=== PATIENT | male | born 1960 | race Caucasian/White ===

== ENCOUNTER 2022-10-07 20:55 | Observation (INO) | payer MEDICARE, MEDICAID, SELFPAY ==
[2022-10-07] VITALS (15 sets, daily range): BP systolic 125–171; BP diastolic 67–116; PULSE 74–103; RESP 14–31; TEMP 36.9; O2SAT 93–98; BMI 27.3
[2022-10-07 21:25] LABS: Glucometer 141 mg/dL (74-106)
--- NOTE | 2022-10-07 21:27 | ED_ITS ---
HPI - Chest Pain General Chief Complaint: Chest Pain Stated Complaint: CHEST PAIN Time Seen by Provider: 10/07/22 21:23 Mode of arrival: Wheelchair History of Present Illness HPI narrative: presents complaining of chest pain on and off for the past 3 days. Daily c igarette smoker. Right sided chest pain. Pain increases with deep breath. No associated abdominal pain MD complaint: Reports chest pain Risk Factors Coronary artery disease risk factors: smoking history and hypertension Related Data Home Medications Medication Instructions Recorded Confirmed amlodipine 10 mg tablet 10 mg PO DAILY 10/07/22 10/07/22 cariprazine 6 mg capsule (Vraylar) 6 mg PO DAILY 10/07/22 10/07/22 divalproex 500 mg tablet,delayed 500 mg PO DAILY 10/07/22 10/07/22 release olanzapine 20 mg tablet 20 mg PO DAILY 10/07/22 10/07/22 trazodone 100 mg tablet 100 mg PO PRN sleep 10/07/22 Allergies Allergy/AdvReac Type Severity Reaction Status Date / Time No Known Drug Allergies Allergy Verified 10/07/22 21:17 Review of Systems ROS Status of ROS 10 or more systems reviewed and unremarkable except as noted in history and below Cardiovascular Reports: chest pain PFSH PFSH Social History Smoking status: Current every day smoker Exam Constitutional Vital Signs - 24 hr 10/07/22 21:13 10/07/22 21:13 10/07/22 21:18 Temperature 98.4 F Pulse Rate 86 88 Pulse Rate [Monitor] 84 Respiratory Rate 14 18 23 Blood Pressure 171/116 H 163/102 H Blood Pressure [Right Arm] 171/116 H Pulse Oximetry 95 93 L 97 Oxygen Delivery Method Room Air 10/07/22 21:32 10/07/22 21:40 10/07/22 21:50 Temperature Pulse Rate 80 84 86 Pulse Rate [Monitor] Respiratory Rate 16 20 18 Blood Pressure Blood Pressure [Right Arm] Pulse Oximetry 97 97 95 Oxygen Delivery Method 10/07/22 22:00 10/07/22 22:10 10/07/22 22:20 Temperature Pulse Rate 86 81 80 Pulse Rate [Monitor] Respiratory Rate 31 H 19 16 Blood Pressure Blood Pressure [Right Arm] Pulse Oximetry 98 94 L 97 Oxygen Delivery Method 10/07/22 22:30 10/07/22 22:40 10/07/22 22:50 Temperature Pulse Rate 80 83 84 Pulse Rate [Monitor] Respiratory Rate 16 17 16 Blood Pressure Blood Pressure [Right Arm] Pulse Oximetry 97 96 94 L Oxygen Delivery Method 10/07/22 22:57 10/07/22 22:58 10/07/22 23:00 Temperature Pulse Rate 93 H 90 78 Pulse Rate [Monitor] Respiratory Rate 18 19 16 Blood Pressure 168/95 H 150/86 H Blood Pressure [Right Arm] Pulse Oximetry 95 95 94 L Oxygen Delivery Method 10/07/22 23:00 10/07/22 23:30 Temperature Pulse Rate 74 103 H Pulse Rate [Monitor] Respiratory Rate 15 18 Blood Pressure 150/86 H 125/67 H Blood Pressure [Right Arm] Pulse Oximetry 95 Oxygen Delivery Method Common normals: no apparent distress, oriented x3 and healthy appearing Exam limitations: altered mental status HENMT Common normals: normocephalic and head/scalp atraumatic Eye Common normals: PERRL, EOMs intact bilaterally and conjunctivae normal Chest Common normals: inspection of chest normal and palpation of chest normal Respiratory Common normals: normal respiratory effort, no retractions, no use of accessory muscles and clear to auscultation bilaterally GI Common normals: Normal to inspection, nondistended, normoactive bowel sounds present Other: mild RUQ tenderness. no guarding Extremity Common normals: normal to inspection and full ROM Neuro Common normals: oriented x3, CN's II-XII intact bilaterally, moves all extremities and no focal motor deficits Psych Appearance: grossly normal Course Vital Signs Vital signs: Vital Signs Temperature 98.4 F 10/07/22 21:13 Pulse Rate 86 10/07/22 21:13 Respiratory Rate 14 10/07/22 21:13 Blood Pressure 171/116 H 10/07/22 21:13 Pulse Oximetry 95 10/07/22 21:13 Oxygen Delivery Method Room Air 10/07/22 21:13 Temperature 98.4 F 10/07/22 21:13 Pulse Rate 103 H 10/07/22 23:30 Respiratory Rate 18 10/07/22 23:30 Blood Pressure 125/67 H 10/07/22 23:30 Pulse Oximetry 95 10/07/22 23:00 Oxygen Delivery Method Room Air 10/07/22 21:13 MDM - Chest Pain MDM Narrative Medical decision making narrative: patient presents complaining of recurrent right sided chest pain on and off for the past 3 days. He has past history of HTN, CKD and is a daily smoker. Exam finds bilat upper quad tenderness R>L. No guarding. EKG NSR with nonspecific ST-T changes. D-dimer neg. First troponin neg. cxray neg. LFTs unremarkable and lipase normal as well. Patient medicated with NTG SL and he feels it help some. History somewhat limited as he is a poor historian. Discussed with the hospitalist and patient accepted for obs admission Lab Data Labs: Lab Results 10/07/22 10/07/22 Range/Units 21:24 21:40 WBC 11.3 H (4.0-11.0) 10^3/uL RBC 5.99 (4.70-6.10) 10^6/uL Hgb 17.4 (14.0-18.0) g/dL Hct 52.8 (42.0-54.0) % MCV 88.1 (80.0-94.0) fL MCH 29.0 (25.9-34.0) pg MCHC 33.0 (29.9-35.2) g/dL RDW 14.4 (11.0-15.0) % Plt Count 313 (150-450) 10^3/uL MPV 10.1 (9.5-13.5) fL Neut % (Auto) 68.6 (43.0-75.0) % Lymph % (Auto) 19.3 L (20.5-60.0) % Preston % (Auto) 7.1 (1.7-12.0) % Eos % (Auto) 4.1 (0.9-7.0) % Baso % (Auto) 0.5 (0.2-2.0) % Neut # (Auto) 7.7 H (1.4-6.5) 10^3/uL Lymph # (Auto) 2.2 (1.2-3.8) 10^3/uL Preston # (Auto) 0.8 (0.3-0.8) 10^3/uL Eos # (Auto) 0.5 (0.0-0.7) 10^3/uL Baso # (Auto) 0.1 (0.0-0.1) 10^3/uL Abs Immat Gran (auto) 0.05 H (0.00-0.03) 10^3/uL Imm/Tot Granulo (auto) 0.4 (0.0-0.5) % D-Dimer 0.43 (<=0.59) mg/L FEU Sodium 139 (136-145) mmol/L Potassium 3.7 (3.5-5.1) mmol/L Chloride 101 (98-107) mmol/L Carbon Dioxide 30.5 (21.0-32.0) mmol/L Anion Gap 11.2 BUN 28.0 H (7.0-18.0) mg/dL Creatinine 1.43 H (0.70-1.30) mg/dL Est GFR ( Amer) >60 (>=60) Est GFR (Non-Af Amer) 50 L (>=60) BUN/Creatinine Ratio 19.6 Glucose 142 H (74-106) mg/dL Calcium 9.1 (8.5-10.1) mg/dL Total Bilirubin 0.4 (0.2-1.0) mg/dL AST 23 (15-37) U/L ALT 35 (16-63) U/L Alkaline Phosphatase 86 (46-116) U/L Troponin I High Sens 21.7 (4.0-76.1) pg/mL Total Protein 7.6 (6.4-8.2) g/dL Albumin 3.3 L (3.4-5.0) g/dL Globulin 4.3 g/dL Albumin/Globulin Ratio 0.8 Lipase 137.0 (73.0-393.0) U/L POC Glucose 141 H (74-106) mg/dL Discharge Plan Discharge Chief Complaint: Chest Pain Clinical Impression: Chest pain Patient Disposition: Admitted as Observation
--- NOTE | 2022-10-07 21:31 | XR_ITS ---
[address] [address] Patient Name: MARLENY TOLENTINO MRN: [id number] date: 1960 Sex: M Assigned Patient Location: ED.MAIN Current Patient Location: ED.MAIN Accession/Order Number: [id number] Exam Date: 10/07/2022 21:48 Report Date: 10/07/2022 21:58 At the request of: TREY HARVEY Procedure: XR chest 1V EXAMINATION: XR chest 1V HISTORY: Chest pain COMPARISON: None. TECHNIQUE: Portable chest FINDINGS: The lung parenchyma is free of consolidation or infiltrate. No pneumothorax or pleural effusion. The cardiac, mediastinal and hilar contours are normal. The visualized osseous structures exhibit no gross abnormality. IMPRESSION: No acute cardiopulmonary abnormality. Electronically authenticated by: JON ZAMORA Date: 10/07/2022 21:58
--- NOTE | 2022-10-07 21:31 | ECG_ITS ---
[facility] Test Date: 2022-10-07 Pat Name: Peyman Snyder Department: Room: - Gender: Male Irrigator: : 1960 Requested By: 1031 Order Number: [id number] Reading MD: ELBERT VAUGHAN Measurements Intervals [place] Rate: 85 P: 69 DC: 140 QRS: 72 QRSD: 94 T: 67 QT: 368 QTc: 410 Interpretive Statements 1100 Sinus rhythm [address] depression [address] & Twave abnormality 6120 Possible right atrial enlargement 9150 abnormal ECG No previous ECG available for comparison Electronically Signed On 10-08-2022 7:05:38 EDT by ELBERT VAUGHAN
[2022-10-07 21:57] LABS: Basophils Absolute Auto 0.1 10^3/uL (0.0-0.1); Basophils Percent Auto 0.5 % (0.2-2.0); Eosinophils Absolute Auto 0.5 10^3/uL (0.0-0.7); Eosinophils Percent Auto 4.1 % (0.9-7.0); Hematocrit 52.8 % (42.0-54.0); Hemoglobin 17.4 g/dL (14.0-18.0); Immature Granulocytes Abs Auto 0.05 10^3/uL (0.00-0.03); Immature Granulocytes Pct Auto 0.4 % (0.0-0.5); Lymphocytes Absolute Auto 2.2 10^3/uL (1.2-3.8); Lymphocytes Percent Auto 19.3 % (20.5-60.0); Mean Corpuscular Volume 88.1 fL (80.0-94.0); Mean Platelet Volume 10.1 fL (9.5-13.5); Monocytes Absolute Auto 0.8 10^3/uL (0.3-0.8); Monocytes Percent Auto 7.1 % (1.7-12.0); Neutrophils Absolute Auto 7.7 10^3/uL (1.4-6.5); Neutrophils Percent Auto 68.6 % (43.0-75.0); Platelet Count 313 10^3/uL (150-450); Red Blood Count 5.99 10^6/uL (4.70-6.10); Red Cell Distribution Width 14.4 % (11.0-15.0); White Blood Count 11.3 10^3/uL (4.0-11.0)
[2022-10-07 22:06] LABS: D Dimer 0.43 mg/L FEU (<=0.59)
[2022-10-07 22:11] LABS: Alanine Aminotransferase 35 U/L (16-63); Albumin Globulin Ratio 0.8; Albumin Level 3.3 g/dL (3.4-5.0); Alkaline Phosphatase 86 U/L (46-116); Anion Gap 11.2; Aspartate Amino Transferase 23 U/L (15-37); BUN Creatinine Ratio 19.6; Bilirubin Total 0.4 mg/dL (0.2-1.0); Calcium 9.1 mg/dL (8.5-10.1); Carbon Dioxide 30.5 mmol/L (21.0-32.0); Chloride 101 mmol/L (98-107); Estimated GFR (African America >60 (>=60); Estimated GFR (Non-African Ame 50 (>=60); Globulin 4.3 g/dL; Glucose 142 mg/dL (74-106); Potassium 3.7 mmol/L (3.5-5.1); Sodium 139 mmol/L (136-145); Total Protein 7.6 g/dL (6.4-8.2); Troponin I High Sensitivity 21.7 pg/mL (4.0-76.1)
[2022-10-07] MEDS: NITROGLYCERIN 0.4 MG TAB.SUBL PO (23:12)
--- NOTE | 2022-10-07 23:13 | PC.NURSE ---
Pt was again complaining of chest pain Dr. Ruffin notified and ordered Nitro When this nurse entered the room to medicate pt he stated that his chest did not hurt, it was his stomach that hurt because he was hungry Pt appearing more and more agitated at this time tossing and turning, pt cursing stating he has been here for hours and nothing done for him and he wants to go home This was expressed to Dr. Ruffin who went to see the pt Dr. Ruffin returned and told me the pt is indeed having chest pain Again this nurse enters the room Pt is verbally expressing his agitation about being on the heart monitor, BP cuff, and pulse ox Pt states get all of this shit off of me, man all you guys are doing is torturing me. How the hell do you expect me to be comfortable? This nurse explains why these things are needed when he is here for chest pain Pt denies wanting medication for chest pain, but then changes his mind again and takes the nitro Pt then states my back hurts, tell that doctor to x-ray my back Followed by carmen get this shit off of me I just want to go home Pt tossing and turning in bed, this nurse reassured him I would speak with Dr. Ruffin and return with an update and to see how is pain is after the Nitro Will continue to monitor
[2022-10-08] VITALS (20 sets, daily range): BP systolic 123–163; BP diastolic 66–92; PULSE 60–97; RESP 7–21; TEMP 36.6–36.9; O2SAT 91–97; BMI 26.8
[2022-10-08] MEDS: NICOTINE 21 MG PATCH.TD24 TD ×2 (00:42→23:33)
[2022-10-08 00:52] LABS: Troponin I High Sensitivity 20.7 pg/mL (4.0-76.1)
--- NOTE | 2022-10-08 02:34 | PC.NURSE ---
Pt taken upstairs via wheelchair by this nurse Pt ambulated from wheelchair to med/surg bed Bedside report given to Dona FELIZ
--- NOTE | 2022-10-08 03:06 | CA_ITS ---
Patient: MARLENY TOLENTINO Exam Date: 10/08/2022 : 1960 Gender:M Ordering : SHAIKH Gregory BENJAMIN . Admission #: [id number] Family : Order #: [id number] CLICK HERE TO VIEW EXAM ECHOCARDIOGRAM REPORT PROCEDURE: CA ECHO DOPPLER COMPLETE INDICATIONS: chest pain COMPARISON: None. DESCRIPTION: COMPLETE ECHOCARDIOGRAM Real-time transthoracic echocardiography with 2D, M-mode, spectral and color flow Doppler performed. QUALITY: Technical quality was good. LEFT VENTRICLE: Normal chamber size. Moderate concentric left ventricular hypertrophy. Normal systolic function. LV EF: Normal left ventricular ejection fraction, (>55%). DIASTOLIC: Grade I diastolic dysfunction. ATRIAL SEPTUM: LEFT ATRIUM: Mild dilatation. RIGHT ATRIUM: Normal chamber size. RIGHT VENTRICLE: Normal chamber size. Normal right ventricular systolic function. TRICUSPID VALVE: Normal mobility and thickness. No stenosis with No evidence of pulmonary hypertension. RVSP 28 mmHg MITRAL VALVE: Mildly thickened with normal mobility. No evidence of mitral valve stenosis. There is no mitral annular calcification. Mild mitral regurgitation. AORTIC VALVE: Normal trileaflet appearance. No visible sclerosis. Normal leaflet mobility. No evidence of aortic valve stenosis. No aortic regurgitation. AORTIC ROOT: The aortic root is mildly dilated measuring 3.7 cm. The descending aorta is prominent as seen on some of the apical images. PULMONIC VALVE: Not well visualized. No stenosis. No regurgitation. PERICARDIUM: No evidence of pericardial effusion. IVC: Collapses with inspirations. PLEURA: CONCLUSION: 1. Moderate concentric left ventricular hypertrophy with normal systolic function. LVEF is 55 to 60%. 2. Normal right ventricular size and systolic function. 3. Mild diastolic dysfunction. 4. No significant valvular dysfunction. 5. Normal right-sided pressures. 6. No pericardial effusion. 7. Prominent descending thoracic aorta seen on some of the apical images. Dedicated imaging of the aorta such as CT scan is recommended. Adult Echocardiography Procedure Report Left Ventricle LVEDD (3.7 - 5.6 cm): 3.93 cm LVESD (2.2 - 4.0 cm): 2.98 cm LVIVS thickness (0.6 - 1.2 cm): 1.38 cm LVPW thickness (0.5 - 1.0 cm): 1.30 cm e': 0.08 m/s E - e': 6.93 LVOT Max Gradient: 4.92 mm[Hg] LVOT Area (cm2): 1.11 m/s Peak Velocity (LVOT): 1.11 m/s LVOT Diameter 2.26 cm Left Atrium LA Volume Index (2D A2C): 37.03 ml/m2 Left Atrium Systolic Dimension: 3.71 cm Mitral Valve MV E to A Ratio: 0.63 Mitral Valve A-Wave Peak Velocity: 0.84 m/s Mitral Valve E-Wave Peak Velocity: 0.53 m/s Right Ventricle Aorta AO Root Diam: 3.69 cm Aortic Valve AoV Area (Peak Goyo): 3.15 cm2, 3.15 cm2 Peak Velocity(Antegrade Flow): 1.41 m/s Peak Gradient(Antegrade Flow): 7.91 mm[Hg] Tricuspid Valve Peak Velocity (Regurgitant Flow): 2.44 m/s, 2.51 m/s Pulmonic Valve Peak Velocity: 0.88 m/s Peak Gradient: 3.01 mm[Hg], 3.22 mm[Hg] Right Atrium Right Atrium Systolic Pressure: 35.10 ml, 35.10 ml Dictated by: Prakash Partida M.D. on 10/09/2022 at 09:38 Approved by: Prakash Partida M.D. on 10/09/2022 at 09:48
--- NOTE | 2022-10-08 03:17 | W.PM.TELEPN ---
Progress Note: Subjective Subjective Interval history: Low epigastric pain. Moderate to severe. Nonradiating. No aggravating alleviating factors HPI: This is a 61 years old male who presents with above complaints. The patient endorses chest pain on and off for the past 3 days. Daily cigarette smoker. Patient localizing pain in his right sided chest pain. Pain increases? with deep breath. No associated abdominal pain Evaluation in the emergency room has been unremarkable. Admitted for further work-up and symptoms control Exam Narrative Exam Narrative: Physical Exam: Not in distress, pleasant, lucid, cooperative, Head - atraumatic, eyes - pupils equal, round, reactive to light, extra ocular movement intact, MMM Neck - supple, thyroid not enlarged, LN not palpated Lungs - clear to auscultation, no dullness on percussion CVS - heart sounds S1, S2, no additional murmurs gallop, regular rate and rhythm Gastrointestinal?abdomen is soft, non-tender, non-distended, no organomegaly, positive bowel sounds Extremities no clubbing, cyanosis or edema Neurological?cranial nerve II?XII grossly intact, no meningeal signs, no cerebellar signs, no sensory deficit Musculoskeletal - joints, no effusions, ROM preserved Dermatological - the skin dry, warm, no rashes Psychiatric?patient is AAO X3, patient has normal affect Constitutional Vital Signs - 24 hr 10/07/22 21:13 10/07/22 21:13 10/07/22 21:18 Temperature 98.4 F Pulse Rate 86 88 Pulse Rate [Monitor] 84 Respiratory Rate 14 18 23 Blood Pressure 171/116 H 163/102 H Blood Pressure [Right Arm] 171/116 H Pulse Oximetry 95 93 L 97 Oxygen Delivery Method Room Air 10/07/22 21:32 10/07/22 21:40 10/07/22 21:50 Temperature Pulse Rate 80 84 86 Pulse Rate [Monitor] Respiratory Rate 16 20 18 Blood Pressure Blood Pressure [Right Arm] Pulse Oximetry 97 97 95 Oxygen Delivery Method 10/07/22 22:00 10/07/22 22:10 10/07/22 22:20 Temperature Pulse Rate 86 81 80 Pulse Rate [Monitor] Respiratory Rate 31 H 19 16 Blood Pressure Blood Pressure [Right Arm] Pulse Oximetry 98 94 L 97 Oxygen Delivery Method 10/07/22 22:30 10/07/22 22:40 10/07/22 22:50 Temperature Pulse Rate 80 83 84 Pulse Rate [Monitor] Respiratory Rate 16 17 16 Blood Pressure Blood Pressure [Right Arm] Pulse Oximetry 97 96 94 L Oxygen Delivery Method 10/07/22 22:57 10/07/22 22:58 10/07/22 23:00 Temperature Pulse Rate 93 H 90 78 Pulse Rate [Monitor] Respiratory Rate 18 19 16 Blood Pressure 168/95 H 150/86 H Blood Pressure [Right Arm] Pulse Oximetry 95 95 94 L Oxygen Delivery Method 10/07/22 23:00 10/07/22 23:30 10/07/22 23:30 Temperature Pulse Rate 74 103 H 93 H Pulse Rate [Monitor] Respiratory Rate 15 18 16 Blood Pressure 150/86 H 125/67 H 125/67 H Blood Pressure [Right Arm] Pulse Oximetry 95 Oxygen Delivery Method 10/08/22 00:04 10/08/22 00:30 10/08/22 01:00 Temperature Pulse Rate 88 85 83 Pulse Rate [Monitor] Respiratory Rate 15 13 19 Blood Pressure 144/68 H 161/92 H Blood Pressure [Right Arm] Pulse Oximetry 96 97 93 L Oxygen Delivery Method 10/08/22 01:30 10/08/22 01:58 10/08/22 02:00 Temperature Pulse Rate 82 81 Pulse Rate [Monitor] Respiratory Rate 7 L 14 Blood Pressure 140/66 H Blood Pressure [Right Arm] Pulse Oximetry Oxygen Delivery Method 10/08/22 02:00 10/08/22 02:07 10/08/22 02:07 Temperature 98.3 F Pulse Rate 81 81 Pulse Rate [Monitor] Respiratory Rate 20 Blood Pressure Blood Pressure [Right Arm] 139/82 H Pulse Oximetry 92 L Oxygen Delivery Method Room Air Room Air Progress Note: Objective Labs Labs: Short CBC 10/07/22 Range/Units 21:40 WBC 11.3 H (4.0-11.0) 10^3/uL Hgb 17.4 (14.0-18.0) g/dL Hct 52.8 (42.0-54.0) % Plt Count 313 (150-450) 10^3/uL BMP 10/07/22 21:40 Sodium 139 Potassium 3.7 Chloride 101 Carbon Dioxide 30.5 BUN 28.0 H Creatinine 1.43 H Glucose 142 H Calcium 9.1 Liver Function 10/07/22 Range/Units 21:40 Total Bilirubin 0.4 (0.2-1.0) mg/dL AST 23 (15-37) U/L ALT 35 (16-63) U/L Alkaline Phosphatase 86 (46-116) U/L Albumin 3.3 L (3.4-5.0) g/dL Progress Note: A&P Assessment and Plan (1) Chest pain: Assessment and Plan: - patient's condition is guarded and requires admission to telemetry floor for close monitoring and medical management - continue to trend Josee to r/u possibility of acute coronary event - will make sure that patient is on at least moderate potency dose of Atorvastatin, full dose of EC ASA (for now), BBs and ACEI if not contraindicated - will order an ECHO to look for wall motion abnormalities and evaluate valvular structures - please consult Sewing Machine Repairer to assist with management (2) Schizo affective schizophrenia: Assessment and Plan: resume home Rx (3) COPD (chronic obstructive pulmonary disease): Assessment and Plan: continue with Neb Rx (4) Bipolar 1 disorder, depressed: Assessment and Plan: as above Telemedicine Attestation Telemedicine Attestation I conducted this encounter from [[place]] via secure live, [id number] video conference with the patient, located at [facility] with [chest pain]. Prior to the interview, the risks and benefits of telemedicine were discussed with the patient and verbal consent was obtained. As the provider for the telehealth service, I attest that I introduced myself to the patient, provided my credentials, disclosed by location and determined that based on a review of the patient's chart and discussion with members of the patient's treatment team, telemedicine via real-time, 2 way, and interactive audio and video platform is an appropriate and effective means of providing the service. ?The patient and I mutually agree this visit is appropriate for telemedicine. ?The virtual encounter was taken place from? [place], [place]. ?The encounter took approximately 35 minutes. ?The nurse was present during the entire time and I was able to move the stethoscope in appropriate directions. ?The patient was evaluated at the Hospital ? Portions of this note may be dictated using [employer] voice recognition software. Variances in spelling and vocabulary are possible and unintentional. Not all errors may be caught and/or corrected. Please notify the author if any discrepancies are noted and/or if the meaning of any statement is unclear.? ? Patient verbally consented for treatment via video visit with patient currently located at [facility] and provider located in [place].
[2022-10-08 04:06] LABS: Chol HDL Ratio 3.4; Cholesterol 160 mg/dL (<=200); HDL Cholesterol 47 mg/dL (40-60); Magnesium 1.9 mg/dL (1.8-2.4); Phosphorus 4.3 mg/dL (2.6-4.7); Triglycerides 150 mg/dL (<=150)
[2022-10-08 04:12] LABS: Anion Gap 11.1; BUN Creatinine Ratio 28.2; Calcium 8.8 mg/dL (8.5-10.1); Carbon Dioxide 27.8 mmol/L (21.0-32.0); Chloride 106 mmol/L (98-107); Estimated GFR (African America >60 (>=60); Estimated GFR (Non-African Ame >60 (>=60); Glucose 88 mg/dL (74-106); Potassium 3.9 mmol/L (3.5-5.1); Sodium 141 mmol/L (136-145); Troponin I High Sensitivity 21.1 pg/mL (4.0-76.1)
--- NOTE | 2022-10-08 08:18 | CT_ITS ---
[address] [address] Patient Name: MARLENY TOLENTINO MRN: [id number] date: 1960 Sex: M Assigned Patient Location: MS Current Patient Location: MS Accession/Order Number: [id number] Exam Date: 10/08/2022 10:05 Report Date: 10/08/2022 12:05 At the request of: LI STEWARD Procedure: CT abdomen pelvis w con EXAMINATION: CT abdomen pelvis w con HISTORY: abvd pain - diffuse - mild rebound COMPARISON: No relevant comparison available. TECHNIQUE: CT images were created with IV contrast. Axial, Coronal, and Sagittal images. Dose reduction techniques were achieved by using automated exposure control and/or adjustment of mA and/or kV according to patient size and/or use of iterative reconstruction technique. FINDINGS: LUNG BASES: Scattered pulmonary nodules the largest 6 mm subpleural left lower lobe axial image 8. LIVER: Multiple areas of focal enhancement throughout the liver the largest 3.4 x 1.5 cm area of enhancement right hepatic lobe axial image #19 BILIARY: No visible dilatation or calcification. PANCREAS: No lesion, fluid collection, ductal dilatation, or atrophy. SPLEEN: No enlargement or focal lesion. ADRENALS: No mass or enlargement. KIDNEYS: No mass, obstruction, or calcification. BOWEL/MESENTERY: No visible mass, obstruction, or bowel wall thickening. AORTA/VASCULAR: No aortic aneurysm or dissection. Mild atherosclerosis. RETROPERITONEUM: No mass or adenopathy. LYMPH NODES: No adenopathy. URINARY BLADDER: Urinary bladder wall measuring up to 12 mm, no inflammatory changes PELVIC ORGANS: No visible mass. Pelvic organs appropriate for patient age. ABDOMINAL WALL: No mass or hernia. BONES: Bilateral L5 pars interarticularis fractures. 5 mm anterolisthesis of L5 on S1. Moderate diffuse degenerative spondylosis and facet osteoarthropathy with likely multilevel foraminal stenosis OTHER: Negative. IMPRESSION: Multiple enhancing lesions in the liver, indeterminate. Consider nonemergent multiphase CT exam of the abdomen for further evaluation Thickening of the urinary bladder wall measuring 12 mm, this could be related to nondistention. No inflammatory changes of the bladder Electronically authenticated by: JON WAITE Date: 10/08/2022 12:05
--- NOTE | 2022-10-08 08:24 | P.HP_ITS ---
H&P: HPI History of Present Illness Chief complaint: CHEST PAIN Narrative: She presented to the emergency room with increasing shortness of breath and chest pain. Patient admitted for cardiac etiology. On my exam is more tenderness abdomen. he did have some ECG changes Review of Systems ROS Status of ROS 10 or more systems reviewed and unremarkable except as noted in history and below Gastrointestinal Reports: abdominal pain and nausea PFSH PFS Medical History (Updated 10/08/22 @ 18:15 by Ravi Montague MD) Surgical History (Updated 10/08/22 @ 02:56 by Dona Perez) Family History (Updated 10/08/22 @ 02:58 by Dona Perez) Father Family history of CHF (congestive heart failure) Family history of diabetes mellitus Family history of hypertension Mother Family history of COPD (chronic obstructive pulmonary disease) Family history of cancer Family history of diabetes mellitus Family history of hypertension Social History (Updated 10/08/22 @ 03:01 by Dona Perez) Within the past year, how often did you have a drink containing alcohol: 2-4 times a month Within the past year, how many standard drinks containing alcohol did you have on a typical day: 3 or 4 Within the past year, how often did you have six or more drinks on one occasion: less than monthly Total score: 3 Score interpretation: A score of 4 or more indicates drinking is likely to affect patient's safety. Smoking status: Current every day smoker Second hand tobacco smoke exposure: Yes Non-prescribed substance use: denies use Previous occupational history: disability Known occupational exposures/hazards: No Highest level of school completed/degree received: 11th grade Do you want help with school or training: No Are you now , , , , never or living with a partner: In a typical week, how many times do you talk on the telephone with family, friends, or neighbors: once per week How often do you get together with friends or relatives: once per week How often do you attend mosque or christianity services: never Do you belong to any clubs or organizations such as mosque groups unions, fraternal or athletic groups, or school groups: no Total score: 0 Score interpretation: A score of less than or equal to 1 indicates the most socially isolated. Little interest or pleasure in doing things: not at all Feeling down, depressed, or hopeless: nearly every day Feel stressed/tense/nervous/anxious/difficulty sleeping: very much Life stressors: unknown source of stress Due to disability, difficulty making decisions: Yes Do you think of yourself as: decline to answer Gender Identity: male Meds Home Medications and Allergies Home Medications Medication Instructions Recorded Confirmed Type amlodipine 10 mg tablet 10 mg PO DAILY 10/07/22 10/07/22 History cariprazine 6 mg capsule (Vraylar) 6 mg PO DAILY 10/07/22 10/07/22 History divalproex 500 mg tablet,delayed 500 mg PO BID 10/07/22 10/08/22 History release olanzapine 20 mg tablet 20 mg PO .AT BEDTIME 10/07/22 10/08/22 History trazodone 100 mg tablet 100 mg PO .AT BEDTIME PRN sleep 10/07/22 10/08/22 History Allergies Allergy/AdvReac Type Severity Reaction Status Date / Time No Known Drug Allergies Allergy Verified 10/07/22 21:17 Exam Constitutional Vital Signs - 24 hr 10/07/22 21:13 10/07/22 21:13 10/07/22 21:18 Temperature 98.4 F Pulse Rate 86 88 Pulse Rate [Monitor] 84 Respiratory Rate 14 18 23 Blood Pressure 171/116 H 163/102 H Blood Pressure [Right Arm] 171/116 H Pulse Oximetry 95 93 L 97 Oxygen Delivery Method Room Air 10/07/22 21:32 10/07/22 21:40 10/07/22 21:50 Temperature Pulse Rate 80 84 86 Pulse Rate [Monitor] Respiratory Rate 16 20 18 Blood Pressure Blood Pressure [Right Arm] Pulse Oximetry 97 97 95 Oxygen Delivery Method 10/07/22 22:00 10/07/22 22:10 10/07/22 22:20 Temperature Pulse Rate 86 81 80 Pulse Rate [Monitor] Respiratory Rate 31 H 19 16 Blood Pressure Blood Pressure [Right Arm] Pulse Oximetry 98 94 L 97 Oxygen Delivery Method 10/07/22 22:30 10/07/22 22:40 10/07/22 22:50 Temperature Pulse Rate 80 83 84 Pulse Rate [Monitor] Respiratory Rate 16 17 16 Blood Pressure Blood Pressure [Right Arm] Pulse Oximetry 97 96 94 L Oxygen Delivery Method 10/07/22 22:57 10/07/22 22:58 10/07/22 23:00 Temperature Pulse Rate 93 H 90 78 Pulse Rate [Monitor] Respiratory Rate 18 19 16 Blood Pressure 168/95 H 150/86 H Blood Pressure [Right Arm] Pulse Oximetry 95 95 94 L Oxygen Delivery Method 10/07/22 23:00 10/07/22 23:30 10/07/22 23:30 Temperature Pulse Rate 74 103 H 93 H Pulse Rate [Monitor] Respiratory Rate 15 18 16 Blood Pressure 150/86 H 125/67 H 125/67 H Blood Pressure [Right Arm] Pulse Oximetry 95 Oxygen Delivery Method 10/08/22 00:04 10/08/22 00:30 10/08/22 01:00 Temperature Pulse Rate 88 85 83 Pulse Rate [Monitor] Respiratory Rate 15 13 19 Blood Pressure 144/68 H 161/92 H Blood Pressure [Right Arm] Pulse Oximetry 96 97 93 L Oxygen Delivery Method 10/08/22 01:30 10/08/22 01:58 10/08/22 02:00 Temperature Pulse Rate 82 81 Pulse Rate [Monitor] Respiratory Rate 7 L 14 Blood Pressure 140/66 H Blood Pressure [Right Arm] Pulse Oximetry Oxygen Delivery Method 10/08/22 02:00 10/08/22 02:07 10/08/22 02:07 Temperature 98.3 F Pulse Rate 81 81 Pulse Rate [Monitor] Respiratory Rate 20 Blood Pressure Blood Pressure [Right Arm] 139/82 H Pulse Oximetry 92 L Oxygen Delivery Method Room Air Room Air 10/08/22 04:00 10/08/22 06:00 10/08/22 04:50 Temperature 97.8 F Pulse Rate 72 91 H 97 H Pulse Rate [Monitor] Respiratory Rate 21 Blood Pressure Blood Pressure [Right Arm] 163/91 H Pulse Oximetry 91 L Oxygen Delivery Method 10/08/22 08:08 Temperature Pulse Rate 71 Pulse Rate [Monitor] Respiratory Rate Blood Pressure Blood Pressure [Right Arm] Pulse Oximetry Oxygen Delivery Method Common normals: apparent distress Chest Common normals: inspection of chest normal Respiratory Common normals: normal respiratory effort Auscultation: clear to auscultation bilaterally Cardio Rate: regular rate Rhythm: regular rhythm GI Inspection: normal to inspection Palpation: soft and tender Results Labs Labs: Short CBC 10/07/22 Range/Units 21:40 WBC 11.3 H (4.0-11.0) 10^3/uL Hgb 17.4 (14.0-18.0) g/dL Hct 52.8 (42.0-54.0) % Plt Count 313 (150-450) 10^3/uL BMP 10/07/22 10/08/22 21:40 03:34 Sodium 139 141 Potassium 3.7 3.9 Chloride 101 106 Carbon Dioxide 30.5 27.8 BUN 28.0 H 33.0 H Creatinine 1.43 H 1.17 Glucose 142 H 88 Calcium 9.1 8.8 Liver Function 10/07/22 Range/Units 21:40 Total Bilirubin 0.4 (0.2-1.0) mg/dL AST 23 (15-37) U/L ALT 35 (16-63) U/L Alkaline Phosphatase 86 (46-116) U/L Albumin 3.3 L (3.4-5.0) g/dL Assessment and Plan Assessment and Plan (1) Chest pain: (2) Schizo affective schizophrenia: (3) COPD (chronic obstructive pulmonary disease): (4) Bipolar 1 disorder, depressed: (5) HTN (hypertension): (6) Generalized abdominal pain: Plan Chest pain-check echocardiogram, consult to cardiology, troponins are normal- plan per cardiology Upper abdominal pain-instead of ultrasound run check the CT scan lipase was negative,Uncertain etiology, with it being more in the upper abdomen we will start patient on IV Protonix Schizoaffective disorder-continue with home medications Hypertension-continue with medications Leukocytosis-uncertain etiology, check serial labs
[2022-10-08] MEDS: AMLODIPINE BESYLATE 5 MG TABLET 10 MG PO (08:26)
[2022-10-08] MEDS: ASPIRIN 325 MG TABLET PO (08:26)
[2022-10-08] MEDS: METOPROLOL TARTRATE 25 MG TABLET PO ×2 (08:26→21:45)
[2022-10-08] MEDS: DIVALPROEX SODIUM 500 MG TABLET.DR PO ×2 (08:26→21:44)
--- NOTE | 2022-10-08 08:40 | CM.NOTE ---
Rounds made with Dr. Montague, discussed with pt further testing echo and abdominal ultrasound today. Pt this AM c/o more upper abdominal pain. Possible discharge this afternoon depending on test results.
[2022-10-08] MEDS: KETOROLAC TROMETHAMINE 30 MG/ML VIAL IVP ×2 (09:05→16:15)
[2022-10-08] MEDS: PANTOPRAZOLE SODIUM 40 MG VIAL IV (09:05)
[2022-10-08 09:34] LABS: Troponin I High Sensitivity 18.2 pg/mL (4.0-76.1)
--- NOTE | 2022-10-08 11:55 | SWNOTE1 ---
SW met with pt to discuss dc needs. Pt is independent at home, lives at home by himself. Pt has at least 1 friend/family member who can assist if needed. Pt is having some chest pain/stomach pain. At this time pt denies any dc needs. SW to follow as needed.
--- NOTE | 2022-10-08 13:34 | CM.NOTE ---
Medicare Outpatient Observation Notice discussed with pt, pt verbalizes understanding and signs paper. Original given to pt and copy placed in pt's chart.
--- NOTE | 2022-10-08 13:50 | PM.CACN ---
History of Present Illness History of Present Illness Consult date: 10/08/22 Requesting physician: Ravi Montague Consult reason: chest pain Chief complaint: CHEST PAIN Narrative: 61 year old male with PMH Schizophrenia, bipolar, hypertension. He takes amlodipine 10 mg daily in addition to psych medications. States he started having chest pain and abdominal pain over the last few days and came to ER for evaluation. He had negative cardiac enzymes, ECG showed moderate ST depression with upsloping. Patient is never experienced this before, chest pain is intermittent and is associated with shortness of breath. Patient has history of smoking pack per day Family history of father having open heart surgery. He denies palpitations, lightheadedness, dizziness. Review of Systems ROS Constitutional Reports: fatigue Cardiovascular Reports: chest pain (intermittent ) Gastrointestinal Reports: abdominal pain [facility] Medical History (Updated 10/09/22 @ 08:34 by JOSEY KOEHLER) Surgical History (Updated 10/08/22 @ 02:56 by Dona Perez) Family History (Updated 10/08/22 @ 02:58 by Dona Perez) Father Family history of CHF (congestive heart failure) Family history of diabetes mellitus Family history of hypertension Mother Family history of COPD (chronic obstructive pulmonary disease) Family history of cancer Family history of diabetes mellitus Family history of hypertension Social History (Updated 10/08/22 @ 03:01 by Dona Perez) Within the past year, how often did you have a drink containing alcohol: 2-4 times a month Within the past year, how many standard drinks containing alcohol did you have on a typical day: 3 or 4 Within the past year, how often did you have six or more drinks on one occasion: less than monthly Total score: 3 Score interpretation: A score of 4 or more indicates drinking is likely to affect patient's safety. Smoking status: Current every day smoker Second hand tobacco smoke exposure: Yes Non-prescribed substance use: denies use Previous occupational history: disability Known occupational exposures/hazards: No Highest level of school completed/degree received: 11th grade Do you want help with school or training: No Are you now , , , , never or living with a partner: In a typical week, how many times do you talk on the telephone with family, friends, or neighbors: once per week How often do you get together with friends or relatives: once per week How often do you attend nondenominational or buddhism services: never Do you belong to any clubs or organizations such as nondenominational groups unions, fraternal or athletic groups, or school groups: no Total score: 0 Score interpretation: A score of less than or equal to 1 indicates the most socially isolated. Little interest or pleasure in doing things: not at all Feeling down, depressed, or hopeless: nearly every day Feel stressed/tense/nervous/anxious/difficulty sleeping: very much Life stressors: unknown source of stress Due to disability, difficulty making decisions: Yes Do you think of yourself as: decline to answer Gender Identity: male Meds Home Medications and Allergies Home Medications Medication Instructions Recorded Confirmed Type amlodipine 10 mg tablet 10 mg PO DAILY 10/07/22 10/07/22 History cariprazine 6 mg capsule (Vraylar) 6 mg PO DAILY 10/07/22 10/07/22 History divalproex 500 mg tablet,delayed 500 mg PO BID 10/07/22 10/08/22 History release olanzapine 20 mg tablet 20 mg PO .AT BEDTIME 10/07/22 10/08/22 History trazodone 100 mg tablet 100 mg PO .AT BEDTIME PRN sleep 10/07/22 10/08/22 History Allergies Allergy/AdvReac Type Severity Reaction Status Date / Time No Known Drug Allergies Allergy Verified 10/07/22 21:17 Exam Constitutional Vital Signs - 24 hr 10/07/22 21:13 10/07/22 21:13 10/07/22 21:18 Temperature 98.4 F Pulse Rate 86 88 Pulse Rate [Monitor] 84 Respiratory Rate 14 18 23 Blood Pressure 171/116 H 163/102 H Blood Pressure [Right Arm] 171/116 H Pulse Oximetry 95 93 L 97 Oxygen Delivery Method Room Air 10/07/22 21:32 10/07/22 21:40 10/07/22 21:50 Temperature Pulse Rate 80 84 86 Pulse Rate [Monitor] Respiratory Rate 16 20 18 Blood Pressure Blood Pressure [Right Arm] Pulse Oximetry 97 97 95 Oxygen Delivery Method 10/07/22 22:00 10/07/22 22:10 10/07/22 22:20 Temperature Pulse Rate 86 81 80 Pulse Rate [Monitor] Respiratory Rate 31 H 19 16 Blood Pressure Blood Pressure [Right Arm] Pulse Oximetry 98 94 L 97 Oxygen Delivery Method 10/07/22 22:30 10/07/22 22:40 10/07/22 22:50 Temperature Pulse Rate 80 83 84 Pulse Rate [Monitor] Respiratory Rate 16 17 16 Blood Pressure Blood Pressure [Right Arm] Pulse Oximetry 97 96 94 L Oxygen Delivery Method 10/07/22 22:57 10/07/22 22:58 10/07/22 23:00 Temperature Pulse Rate 93 H 90 78 Pulse Rate [Monitor] Respiratory Rate 18 19 16 Blood Pressure 168/95 H 150/86 H Blood Pressure [Right Arm] Pulse Oximetry 95 95 94 L Oxygen Delivery Method 10/07/22 23:00 10/07/22 23:30 10/07/22 23:30 Temperature Pulse Rate 74 103 H 93 H Pulse Rate [Monitor] Respiratory Rate 15 18 16 Blood Pressure 150/86 H 125/67 H 125/67 H Blood Pressure [Right Arm] Pulse Oximetry 95 Oxygen Delivery Method 10/08/22 00:04 10/08/22 00:30 10/08/22 01:00 Temperature Pulse Rate 88 85 83 Pulse Rate [Monitor] Respiratory Rate 15 13 19 Blood Pressure 144/68 H 161/92 H Blood Pressure [Right Arm] Pulse Oximetry 96 97 93 L Oxygen Delivery Method 10/08/22 01:30 10/08/22 01:58 10/08/22 02:00 Temperature Pulse Rate 82 81 Pulse Rate [Monitor] Respiratory Rate 7 L 14 Blood Pressure 140/66 H Blood Pressure [Right Arm] Pulse Oximetry Oxygen Delivery Method 10/08/22 02:00 10/08/22 02:07 10/08/22 02:07 Temperature 98.3 F Pulse Rate 81 81 Pulse Rate [Monitor] Respiratory Rate 20 Blood Pressure Blood Pressure [Right Arm] 139/82 H Pulse Oximetry 92 L Oxygen Delivery Method Room Air Room Air 10/08/22 04:00 10/08/22 06:00 10/08/22 04:50 Temperature 97.8 F Pulse Rate 72 91 H 97 H Pulse Rate [Monitor] Respiratory Rate 21 Blood Pressure Blood Pressure [Right Arm] 163/91 H Pulse Oximetry 91 L Oxygen Delivery Method 10/08/22 08:08 10/08/22 09:52 10/08/22 11:53 Temperature Pulse Rate 71 80 78 Pulse Rate [Monitor] Respiratory Rate Blood Pressure Blood Pressure [Right Arm] Pulse Oximetry Oxygen Delivery Method Documenting provider has reviewed patient's vital signs: yes Common normals: no apparent distress General appearance: cooperative (not cooperative during exam ), comfortable and well developed [facility] Common normals: normocephalic Chest Chest: symmetrical chest wall rise Respiratory Common normals: normal respiratory effort Effort & inspection: able to speak in complete sentences Auscultation: clear to auscultation bilaterally Cardio Common normals: no JVD Rate: regular rate Rhythm: regular rhythm Heart sounds: S1 normal and S2 normal Extremity Common normals: normal to inspection and full ROM Results Labs and Meds Lab results: Cardiac Enzymes 10/07/22 Range/Units 21:40 AST 23 (15-37) U/L Lipids 10/08/22 Range/Units 03:34 Triglycerides 150 (<=150) mg/dL Cholesterol 160 (<=200) mg/dL HDL Cholesterol 47 (40-60) mg/dL Cholesterol/HDL Ratio 3.4 CBC 10/07/22 Range/Units 21:40 WBC 11.3 H (4.0-11.0) 10^3/uL RBC 5.99 (4.70-6.10) 10^6/uL Hgb 17.4 (14.0-18.0) g/dL Hct 52.8 (42.0-54.0) % Plt Count 313 (150-450) 10^3/uL Neut # (Auto) 7.7 H (1.4-6.5) 10^3/uL Lymph # (Auto) 2.2 (1.2-3.8) 10^3/uL [place] # (Auto) 0.8 (0.3-0.8) 10^3/uL Eos # (Auto) 0.5 (0.0-0.7) 10^3/uL Baso # (Auto) 0.1 (0.0-0.1) 10^3/uL Comprehensive Metabolic Panel 10/07/22 10/08/22 Range/Units 21:40 03:34 Sodium 139 141 (136-145) mmol/L Potassium 3.7 3.9 (3.5-5.1) mmol/L Chloride 101 106 (98-107) mmol/L Carbon Dioxide 30.5 27.8 (21.0-32.0) mmol/L BUN 28.0 H 33.0 H (7.0-18.0) mg/dL Creatinine 1.43 H 1.17 (0.70-1.30) mg/dL Glucose 142 H 88 (74-106) mg/dL Calcium 9.1 8.8 (8.5-10.1) mg/dL AST 23 (15-37) U/L ALT 35 (16-63) U/L Alkaline Phosphatase 86 (46-116) U/L Total Protein 7.6 (6.4-8.2) g/dL Albumin 3.3 L (3.4-5.0) g/dL Intake and Output 10/07/22 10/08/22 10/08/22 23:59 07:59 15:59 Output Total 400 / 400 Balance -400 / -400 Output: Urine 400 / 400 Other: Weight 84 kg 82.3 kg Assessment and Plan Assessment and Plan (1) Chest pain: Assessment and Plan: Chest pain, intermittent, atypical - occurs at rest -recommend inpt stress -mod depressed ST with upsloping, negative cardiac enzymes -no previous ECG to compare -pending echo results -hx smoking, father had hx cabg -primary team aware of plan -will need follow up in CV clinic pending echo and stress results, if stress positive will need tx to [facility] for heart cath Qualifiers: Chest pain type: other chest pain Qualified Code(s): R07.89 - Other chest pain (2) Schizo affective schizophrenia: (3) COPD (chronic obstructive pulmonary disease): (4) Bipolar 1 disorder, depressed:
[2022-10-08] MEDS: ACETAMINOPHEN 325 MG TABLET 650 MG PO (21:44)
[2022-10-08] MEDS: OLANZapine 5 MG TABLET 20 MG PO (21:45)
[2022-10-08] MEDS: TRAZODONE HCL 50 MG TABLET 100 MG PO (21:45)
[2022-10-09] VITALS (12 sets, daily range): BP systolic 143–148; BP diastolic 71–73; PULSE 60–77; RESP 20; TEMP 36.7–36.8; O2SAT 92–93
--- NOTE | 2022-10-09 | NM_ITS ---
Patient: PEYMAN TOLENTINO Exam Date: 10/09/2022 : 1960 Gender:M Ordering : Peyman Huffman Admission #: [id number] Family : Shaikh Gregory Michael . Order #: [id number] CLICK HERE TO VIEW EXAM RADIOLOGY REPORT PROCEDURE: NM KATLYN PERF SPECT REST STR COMPARISON: None. INDICATIONS: Chest pain TECHNIQUE: Exam Description: Stress/Rest one day protocol gated SPECT Rest Imagin.5 mCi Tc-99m Cardiolite IV on 10/09/2022 Stress Imaging 30.0 mCi Tc-99m Cardiolite IV on 10/09/2022 Exercise Protocol: 0.4 mg Lexiscan given IV Heart Rate (bpm): Rest: 63 Max: 88 PMHR: 55 Blood Pressure: Rest: 162/84 Max: 162/84 Symptoms: Rest and peak stress ECG findings were pending and the exercise portion of the study was pending per attending physician Dr. PADILLA . For more details please see separate cardiac stress test report. FINDINGS: QUALITY OF STUDY: PERFUSION DEFECT: LOCATION: Basal inferior. Mid-inferior. Apical inferior. [place]. SIZE: Medium (3-4 segments). SEVERITY: Moderate. TYPE: Persistent. WALL MOTION: Normal. LV SIZE: Enlarged; EDV 138 mL. TID / TCD: None; 1.0 LVEF: Abnormal. Calculated EF 52%. SUMMARY: Myocardial perfusion imaging study has ABNORMAL findings. CONCLUSION: 1. Moderate size moderate severity fixed defect inferior wall extending to the apex 2. No reversible ischemia 3. Dilated left ventricle, end-diastolic volume 138 milliliters 4. Low left ventricular ejection fraction 52% 5. Pending exercise test Dictated by: Elieser Hamm MD on 10/09/2022 at 14:28 Approved by: Elieser Hamm MD on 10/09/2022 at 14:32
[2022-10-09 05:08] LABS: Basophils Absolute Auto 0.1 10^3/uL (0.0-0.1); Basophils Percent Auto 0.5 % (0.2-2.0); Eosinophils Absolute Auto 0.7 10^3/uL (0.0-0.7); Eosinophils Percent Auto 7.4 % (0.9-7.0); Hematocrit 49.3 % (42.0-54.0); Hemoglobin 16.5 g/dL (14.0-18.0); Immature Granulocytes Abs Auto 0.04 10^3/uL (0.00-0.03); Immature Granulocytes Pct Auto 0.4 % (0.0-0.5); Lymphocytes Absolute Auto 2.9 10^3/uL (1.2-3.8); Lymphocytes Percent Auto 29.6 % (20.5-60.0); Mean Corpuscular HGB Conc 33.5 g/dL (29.9-35.2); Mean Corpuscular Hemoglobin 29.7 pg (25.9-34.0); Mean Corpuscular Volume 88.7 fL (80.0-94.0); Mean Platelet Volume 10.5 fL (9.5-13.5); Monocytes Absolute Auto 0.7 10^3/uL (0.3-0.8); Monocytes Percent Auto 6.9 % (1.7-12.0); Neutrophils Absolute Auto 5.5 10^3/uL (1.4-6.5); Neutrophils Percent Auto 55.2 % (43.0-75.0); Platelet Count 283 10^3/uL (150-450); Red Blood Count 5.56 10^6/uL (4.70-6.10); Red Cell Distribution Width 14.2 % (11.0-15.0); White Blood Count 9.9 10^3/uL (4.0-11.0)
[2022-10-09 05:34] LABS: Alanine Aminotransferase 27 U/L (16-63); Albumin Globulin Ratio 0.7; Albumin Level 2.7 g/dL (3.4-5.0); Alkaline Phosphatase 70 U/L (46-116); Anion Gap 11.7; Aspartate Amino Transferase 13 U/L (15-37); BUN Creatinine Ratio 25.4; Bilirubin Total 0.5 mg/dL (0.2-1.0); Calcium 8.6 mg/dL (8.5-10.1); Carbon Dioxide 27.2 mmol/L (21.0-32.0); Chloride 106 mmol/L (98-107); Estimated GFR (African America >60 (>=60); Estimated GFR (Non-African Ame >60 (>=60); Globulin 3.8 g/dL; Glucose 107 mg/dL (74-106); Potassium 3.9 mmol/L (3.5-5.1); Sodium 141 mmol/L (136-145); Total Protein 6.5 g/dL (6.4-8.2)
[2022-10-09] MEDS: AMLODIPINE BESYLATE 5 MG TABLET 10 MG PO (08:44)
[2022-10-09] MEDS: ASPIRIN 325 MG TABLET PO (08:44)
[2022-10-09] MEDS: DIVALPROEX SODIUM 500 MG TABLET.DR PO (08:44)
[2022-10-09] MEDS: METOPROLOL TARTRATE 25 MG TABLET PO (08:45)
[2022-10-09] MEDS: PANTOPRAZOLE SODIUM 40 MG VIAL IV (08:45)
[2022-10-09 10:45] LABS: Amphetamine Screen Urine POSITIVE (NEGATIVE); Benzodiazepines Screen Urine NEGATIVE (NEGATIVE); Cannabinoid Screen Urine NEGATIVE (NEGATIVE); Cocaine Screen Urine NEGATIVE (NEGATIVE); Methamphetamines Screen Urine POSITIVE (NEGATIVE); Opiate Screen Urine NEGATIVE (NEGATIVE); Phencyclidine Screen Urine NEGATIVE (NEGATIVE)
[2022-10-09 10:46] LABS: Barbiturates Screen Urine NEGATIVE (NEGATIVE); Buprenorphine Screen Urine NEGATIVE (NEGATIVE); Methadone Screen Urine NEGATIVE (NEGATIVE); Oxycodone Screen Urine NEGATIVE (NEGATIVE); Tricyclic Antidepressant Urine NEGATIVE (NEGATIVE)
[2022-10-09] MEDS: REGADENOSON 0.4 MG/5 ML SYRINGE IV (11:56)
--- NOTE | 2022-10-09 12:16 | CM.NOTE ---
Rounds made with Dr. Michael, awaiting stress test for pt today. Possible discharge to home if stress test is negative.
--- NOTE | 2022-10-11 01:03 | PM.DS1 ---
DS: Providers Provider Date of admission: 10/08/22 01:58 Primary care physician: Non-Staff Physician, Consults: 10/08/22 03:01 Consult to Cardiology Routine Consulting Provider: EH JONAS Attending physician on discharge: Shaikh Fernanda Discharging clinician: Shaikh Fernanda Anticipated date of discharge: 10/09/22 DS: Diagnosis Discharge Diagnosis (1) Chest pain: Assessment and plan: Trop x 3 negative. EKG showed non specific changes ST/T wave changes. 2D ECHO no WMA, normal EF. Cardiology consulted and recommended Nuclear stress test - fixed defect inferior wall. Tox screen positive amphetamine/methamphetamine. His pain was primarily RUQ and epigastric and patient reported he had mild chest discomfort at the time of arrival but that is now gone and he continued to exp abd pain. Will need outpatient Cardiology f/u. In view of active amphetamine/meth use, he is not a good candidate for any invasive testing to r/o underlying CAD. Qualifiers: Chest pain type: other chest pain Qualified Code(s): R07.89 - Other chest pain (2) Schizo affective schizophrenia: Assessment and plan: Flat effect, avoiding eye contact, withdrawn and not very easy to communicate with. No SI/HI or hallucinations. C/w outpatient f/u with Psych (3) COPD (chronic obstructive pulmonary disease): Assessment and plan: Not on any meds. Outpatient f/u (4) Bipolar 1 disorder, depressed: Assessment and plan: Stable mood, no active HI/SI. Outpatient f.u (5) Abdominal pain: Assessment and plan: Epigastric and RUQ. Tenderness in RUQ. CT abd/pelvis showed multiple enhancing lesions in liver. Will need CT liver protocol as outpatient. (6) Abnormal CT scan, liver: Assessment and plan: CT abd/pelvis showed multiple enhancing lesions in liver. Will need CT liver protocol as outpatient. (7) Abnormality of thoracic aorta: Assessment and plan: Possibility of enlarged thoracic aorta on 2D ECHO. Will need CTA chest as outpatient. (8) Substance abuse: Assessment and plan: Current active use of illicit drugs, mostly amphetamine Counseled and educated the patient on substance abuse DS: Summary Hospital Course Hospital Course: This is a delayed note for my encounter on 10/09/22 Patient admitted for chest pain, abdominal pain to r/o ACS. EKG showed non specific ST T wave changes. 2D ECHO shows normal EF, no WMA. Nuclear stress test showed fixed defect in inferior wall, normal EF. Need to follow up with Cardiology as outpatient. Patient's pain was primarily in epigastric and RUQ region. Normal Lipase, liver enzymes. Multiple enhancing lesions of Liver on CT abdomen that will need CT liver protocol as outpatient. Also noticed was probable enlargement of thoracic aorta that will also need CTA as outpatient. Status at Discharge Functional status at discharge: independent ambulation Overall status at discharge: patient is back to baseline Time Spent with Patient Time attestation: Total time spent providing and/or coordinating discharge services: Time spent: greater than 30 minutes Exam Constitutional Documenting provider has reviewed patient's vital signs: yes Common normals: no apparent distress General appearance: comfortable Eye Common normals: conjunctivae normal and no scleral icterus Respiratory Common normals: normal respiratory effort, no use of accessory muscles and clear to auscultation bilaterally Cardio Common normals: no JVD, regular rate, S1 normal heart sound, S2 normal heart sound and no murmurs GI Common normals: Normal to inspection, nondistended, normoactive bowel sounds present, soft to palpation and no hepatosplenomegaly Palpation: tender (Epigastrium and RUQ) Extremity Common normals: normal to inspection and full ROM Neuro Common normals: oriented x3, moves all extremities and no focal motor deficits Psych Common normals: activity/motor behavior normal, denies hallucinations, denies homicidal ideation and denies suicidal ideation Discharge Plan Discharge Disposition: Home, Self-Care Discharge Medications: Continued amlodipine 10 mg tablet 10 mg PO DAILY Vraylar 6 mg capsule 6 mg PO DAILY divalproex 500 mg tablet,delayed release (DR/EC) 500 mg PO BID olanzapine 20 mg tablet 20 mg PO .AT BEDTIME trazodone 100 mg tablet 100 mg PO .AT BEDTIME PRN (Reason: sleep) Activity: resume usual activities as tolerated Diet: low salt diet Patient Instructions: Chest Pain (GEN), Abdominal Pain (DC) Forms: Portal Instructions Follow Up Appointments: PCP in one week (list of doctors accepting new patient's given to patient) Cardiology in 1-2 (Call [facility] Cardiology clinic [phone] Discharge Date/Time: 10/09/22 17:32
--- NOTE | 2022-10-13 09:00 | PCN_ITS ---
CARDIAC STRESS TEST Requesting Physician:? Procedure Date:? 10/13/2022 LEXISCAN STRESS TEST INDICATION:? Chest pain. METHODS:? After risks, benefits and alternatives were explained, written informed consent was obtained.? The patient was connected to the appropriate hemodynamic and electrocardiographic monitoring.? Lexiscan 0.4 mg was infused intravenously.? He was monitored for the standard during.? He was discharged in a stable state. FINDINGS: Hemodynamics:? Resting hear rate was 63 beats per minute, increasing to a mximum of 88 beats per minute.? Resting blood pressure was 162/82, decreasing to 148/80.? The patient complained of low back pain with Lexiscan administration, which subsided within 3-4 minutes. ELECTROCARDIOGRAPHY:? Rest EKG:? Sinus rhythm, minimal voltage criteria for left ventricular hypertrophy.? Borderline EKG. During infusion and recovery:? No significant ST-T wave changes noted.? Premature atrial contractions seen. FINAL IMPRESSIONS: 1. ?No ischemic ST-T wave changes noted on Lexiscan stress test. 2.? Nuclear images are to be read, interpreted and reported in a separate dictation. [facility]
--- NOTE | 2022-10-17 10:16 | CM.DCFOLLOWU ---
3 discharge call back attempts were made. Pt's sister answered first call, but not able to complete call back with patient.
== END 2022-10-09 17:32 | disposition home or self-care (01) ==
LOC: ER 10-08 00:44 → MS 10-08 01:59
PROVIDERS: Family Medicine; Admitting Provider Internal Medicine; Emergency Provider Internal Medicine; Visit Provider Internal Medicine
DX: R07.89 Other chest pain (principal); R10.13 Epigastric pain; R10.11 Right upper quadrant pain; J44.9 Chronic obstructive pulmonary disease, unspecified; F25.0 Schizoaffective disorder, bipolar type; R93.1 Abnormal findings on diagnostic imaging of heart and coronary circulation; K76.9 Liver disease, unspecified; F15.10 Other stimulant abuse, uncomplicated; F17.210 Nicotine dependence, cigarettes, uncomplicated; Z79.899 Other long term (current) drug therapy
CPT/HCPCS: 36415; 71045; 74177; 78452; 80048; 80053; 80061; 80307; 83690; 83735; 84100; 84484; 85025; 85378; 93005; 93017; 93306; 96374; 96375; 96376; 99285; A9500; G0378; J2785; Q3014; Q9966; Q9967

== ENCOUNTER 2023-05-19 16:24 | Emergency (ER) | payer MEDICARE, MEDICAID, SELFPAY ==
[2023-05-19] VITALS (11 sets, daily range): BP systolic 122–181; BP diastolic 76–95; PULSE 96–106; RESP 16–25; TEMP 36.9; O2SAT 94–98; BMI 28.1
--- NOTE | 2023-05-19 16:50 | ECG_ITS ---
[facility] Test Date: 2023-05-19 Pat Name: MARLENY TOLENTINO Department: Room: - Gender: Male Ct Scan Technician: : 1960 Requested By: LI STEWARD Order Number: [id number] Reading MD: LI STEWARD Measurements Intervals [place] Rate: 103 P: 61 MA: 144 QRS: 67 QRSD: 86 T: 62 QT: 342 QTc: 402 Interpretive Statements 1120 Sinus tachycardia Non-Specific T wave inversion in aVL 9140 abnormal rhythm ECG Compared to ECG 10/07/2022 21:17:07 Sinus rhythm no longer present ST (T wave) deviation no longer present Electronically Signed On 05-21-2023 5:32:21 EST by LI STEWARD
--- NOTE | 2023-05-19 16:50 | XR_ITS ---
[address] [address] Patient Name: MARLENY TOLENTINO MRN: [id number] date: 1960 Sex: M Assigned Patient Location: ER Current Patient Location: ER Accession/Order Number: [id number] Exam Date: 05/19/2023 16:57 Report Date: 05/19/2023 17:25 At the request of: LONDON MCMULLEN Procedure: XR chest 1V EXAM: XR chest 1V at 1654 hours HISTORY: CP COMPARISON: 10/07/2022 TECHNIQUE: AP upright portable chest x-ray FINDINGS: The heart is not enlarged and the vasculature is not distended. No acute infiltrate, effusion or pneumothorax is identified. The osseous structures are grossly unchanged. XR/XR chest 1V IMPRESSION: No acute infiltrate or evidence of cardiac decompensation. The overall appearance of the chest is unchanged. Electronically authenticated by: MAURILIO ALEXANDER Date: 05/19/2023 17:25
--- NOTE | 2023-05-19 16:51 | ED_ITS ---
HPI - Chest Pain General Chief Complaint: Chest Pain Stated Complaint: Chest Pain Time Seen by Provider: 05/19/23 16:26 Source: patient Mode of arrival: Wheelchair Limitations: no limitations History of Present Illness HPI narrative: 62-year-old male presents for chest pain which has been intermittent for many months. He was admitted last year for the same problem. He states he is never had a heart catheterization. He was released from a psychiatric facility a few days ago. There is been no trauma. It is always in a small localized area in his left lower chest and there is been no injury or fever or cough. Related Data Home Medications Medication Instructions Recorded Confirmed amlodipine 10 mg tablet 10 mg PO DAILY 10/07/22 05/19/23 divalproex 500 mg tablet,delayed 500 mg PO BID 10/07/22 10/08/22 release olanzapine 20 mg tablet 20 mg PO .AT BEDTIME 10/07/22 10/08/22 trazodone 100 mg tablet 100 mg PO .AT BEDTIME PRN sleep 10/07/22 10/08/22 hydroxyzine HCl 50 mg tablet 50 mg PO DAILY 05/19/23 05/19/23 ibuprofen 400 mg tablet 400 mg PO Q8H 05/19/23 05/19/23 mirtazapine 7.5 mg tablet 7.5 mg PO DAILY 05/19/23 05/19/23 paliperidone 6 mg tablet,extended 6 mg PO Q24H 05/19/23 05/19/23 release 24 hr paliperidone palmitate 156 mg/mL 156 mg IM Q30D 05/19/23 05/19/23 intramuscular syringe (Invega Sustenna) trazodone 50 mg tablet 50 mg PO DAILY 05/19/23 05/19/23 Allergies Allergy/AdvReac Type Severity Reaction Status Date / Time No Known Drug Allergies Allergy Verified 10/07/22 21:17 Review of Systems ROS Narrative A ten point review of systems is negative except as noted above. [facility] Medical History (Updated 05/19/23 @ 17:33 by Landon Herrera MD) Abnormality of thoracic aorta ?Q25.40 - Congenital malformation of aorta unspecified (ICD-10) Abnormal CT scan, liver ?R93.2 - Abnormal findings on diagnostic imaging of liver and biliary tract (ICD-10) HTN (hypertension) ?I10 - Essential (primary) hypertension (ICD-10) MRSA (methicillin resistant Staphylococcus aureus) ?A49.02 - Methicillin resistant Staphylococcus aureus infection, unspecified site (ICD-10) COPD (chronic obstructive pulmonary disease) ?J44.9 - Chronic obstructive pulmonary disease, unspecified (ICD-10) Schizo affective schizophrenia ?F25.9 - Schizoaffective disorder, unspecified (ICD-10) Bipolar 1 disorder, depressed ?F31.9 - Bipolar disorder, unspecified (ICD-10) Surgical History (Updated 10/08/22 @ 02:56 by Dona Perez) History of back surgery ?Z98.890 - Other specified postprocedural states (ICD-10) Family History (Updated 10/08/22 @ 02:58 by Dona Perez) Father Family history of CHF (congestive heart failure) Family history of diabetes mellitus Family history of hypertension Mother Family history of COPD (chronic obstructive pulmonary disease) Family history of cancer Family history of diabetes mellitus Family history of hypertension Social History (Updated 10/08/22 @ 03:01 by Dona Perez) Within the past year, how often did you have a drink containing alcohol: 2-4 times a month Within the past year, how many standard drinks containing alcohol did you have on a typical day: 3 or 4 Within the past year, how often did you have six or more drinks on one occasion: less than monthly Total score: 3 Score interpretation: A score of 4 or more indicates drinking is likely to affect patient's safety. Smoking status: Heavy tobacco smoker Second hand tobacco smoke exposure: Yes Non-prescribed substance use: denies use Previous occupational history: disability Known occupational exposures/hazards: No Highest level of school completed/degree received: 11th grade Do you want help with school or training: No Are you now , , , , never or living with a partner: In a typical week, how many times do you talk on the telephone with family, friends, or neighbors: once per week How often do you get together with friends or relatives: once per week How often do you attend methodist or congregational services: never Do you belong to any clubs or organizations such as methodist groups unions, fraternal or athletic groups, or school groups: no Total score: 0 Score interpretation: A score of less than or equal to 1 indicates the most socially isolated. Little interest or pleasure in doing things: not at all Feeling down, depressed, or hopeless: nearly every day Feel stressed/tense/nervous/anxious/difficulty sleeping: very much Life stressors: unknown source of stress Due to disability, difficulty making decisions: Yes Do you think of yourself as: decline to answer Gender Identity: male Exam Narrative Exam Narrative: Nurses note and vital signs reviewed and patient is not hypoxic. General: The patient appears well and in no apparent distress. Patient is resting comfortably on cart. Skin: Warm, dry, no pallor noted. There is no rash noted. Head: Normocephalic, atraumatic Eye: Normal conjunctiva, no drainage Ears, Nose, Mouth, and Throat: oral mucosa is moist. Nares patent. Cardiovascular: Regular Rate and Rhythm Respiratory: Patient is in no distress, no accessory muscle use, lungs are clear to auscultation, no wheezing, rales or rhonchi Back: non-tender GI: Soft and nontender Musculoskeletal: The patient has no evidence of calf tenderness, no pitting ed elvin, symmetrical pulses noted bilaterally Neurological: A&O, normal speech Psychiatric: Cooperative Constitutional Vital Signs, click to edit/add: Last Vital Signs Temp 98.5 F 05/19/23 16:28 Pulse 103 H 05/19/23 16:50 Resp 21 05/19/23 16:50 BP 150/95 H 05/19/23 16:33 Pulse Ox 97 05/19/23 16:50 O2 Del Method Room Air 05/19/23 16:28 Course Vital Signs Vital signs: Vital Signs Temperature 98.5 F 05/19/23 16:28 Pulse Rate 106 H 05/19/23 16:28 Respiratory Rate 16 05/19/23 16:28 Blood Pressure 181/94 H 05/19/23 16:28 Pulse Oximetry 96 05/19/23 16:28 Oxygen Delivery Method Room Air 05/19/23 16:28 Temperature 98.5 F 05/19/23 16:28 Pulse Rate 103 H 05/19/23 16:50 Respiratory Rate 21 05/19/23 16:50 Blood Pressure 150/95 H 05/19/23 16:33 Pulse Oximetry 97 05/19/23 16:50 Oxygen Delivery Method Room Air 05/19/23 16:28 MDM - Chest Pain MDM Narrative Medical decision making narrative: His workup is negative. I have low clinical suspicion of heart disease. He has had the symptoms for many months. Treatment diagnosis and follow-up were discussed with the patient Differential Diagnosis Differential diagnosis: Likely pneumothorax, unstable angina pectoris, atypical chest pain, st elevation myocardial infarction, costochondritis and chest pain Lab Data Attestation: I reviewed the patient's lab results. Labs: Lab Results 05/19/23 Range/Units 16:34 WBC 7.7 (4.0-11.0) 10^3/uL RBC 4.41 L (4.70-6.10) 10^6/uL Hgb 13.1 L (14.0-18.0) g/dL Hct 40.0 L (42.0-54.0) % MCV 90.7 (80.0-94.0) fL MCH 29.7 (25.9-34.0) pg MCHC 32.8 (29.9-35.2) g/dL RDW 14.5 (11.0-15.0) % Plt Count 266 (150-450) 10^3/uL MPV 10.9 (9.5-13.5) fL Neut % (Auto) 70.5 (43.0-75.0) % Lymph % (Auto) 16.6 L (20.5-60.0) % [place] % (Auto) 6.7 (1.7-12.0) % Eos % (Auto) 4.8 (0.9-7.0) % Baso % (Auto) 0.9 (0.2-2.0) % Neut # (Auto) 5.4 (1.4-6.5) 10^3/uL Lymph # (Auto) 1.3 (1.2-3.8) 10^3/uL [place] # (Auto) 0.5 (0.3-0.8) 10^3/uL Eos # (Auto) 0.4 (0.0-0.7) 10^3/uL Baso # (Auto) 0.1 (0.0-0.1) 10^3/uL Abs Immat Gran (auto) 0.04 H (0.00-0.03) 10^3/uL Imm/Tot Granulo (auto) 0.5 (0.0-0.5) % Sodium 138 (136-145) mmol/L Potassium 4.2 (3.5-5.1) mmol/L Chloride 104 (98-107) mmol/L Carbon Dioxide 26.1 (21.0-32.0) mmol/L Anion Gap 12.1 BUN 22.0 H (7.0-18.0) mg/dL Creatinine 1.06 (0.70-1.30) mg/dL Est GFR ( Amer) >60 (>=60) Est GFR (Non-Af Amer) >60 (>=60) BUN/Creatinine Ratio 20.8 Glucose 165 H (74-106) mg/dL Calcium 8.8 (8.5-10.1) mg/dL Troponin I High Sens 7.3 (4.0-76.1) pg/mL Imaging Data Chest x-ray: Radiologist's impression: ITS Impressions Chest X-Ray 05/19/23 16:50 IMPRESSION: No acute infiltrate or evidence of cardiac decompensation. The overall appearance of the chest is unchanged. Electronically authenticated by: MAURILIO ALEXANDER Date: 05/19/2023 17:25 ECG Data Attestation: I personally reviewed and interpreted this ECG as follows: (EKG on my interpretation shows sinus rhythm with a rate of 103. No acute findings.) Heart Score History: Slightly/Non-Suspicious ECG: Normal Age: >45-<65 years Risk Factors: 1 or 2 Risk Factors Troponin: <Normal Limit Total Heart Score Recommendations & Risks:: 2 Discharge Plan Discharge Chief Complaint: Chest Pain Clinical Impression: Atypical chest pain Patient Disposition: Home, Self-Care Time of Disposition Decision: 17:33 Condition: Good Mode of Transportation: Private Vehicle Prescriptions / Home Meds: No Action trazodone 50 mg tablet 50 mg PO DAILY Invega Sustenna 156 mg/mL syringe 156 mg IM Q30D paliperidone 6 mg tablet extended release 24hr 6 mg PO Q24H mirtazapine 7.5 mg tablet 7.5 mg PO DAILY ibuprofen 400 mg tablet 400 mg PO Q8H hydroxyzine HCl 50 mg tablet 50 mg PO DAILY amlodipine 10 mg tablet 10 mg PO DAILY divalproex 500 mg tablet,delayed release (DR/EC) 500 mg PO BID olanzapine 20 mg tablet 20 mg PO .AT BEDTIME trazodone 100 mg tablet 100 mg PO .AT BEDTIME PRN (Reason: sleep) Instructions: Chest Pain (ED) Stand Alone Forms: Portal Instructions Referrals: Physician,Non-Staff, MD [Primary Care Provider] - 1 week
[2023-05-19 17:06] LABS: Basophils Absolute Auto 0.1 10^3/uL (0.0-0.1); Basophils Percent Auto 0.9 % (0.2-2.0); Eosinophils Absolute Auto 0.4 10^3/uL (0.0-0.7); Eosinophils Percent Auto 4.8 % (0.9-7.0); Hemoglobin 13.1 g/dL (14.0-18.0); Immature Granulocytes Abs Auto 0.04 10^3/uL (0.00-0.03); Immature Granulocytes Pct Auto 0.5 % (0.0-0.5); Lymphocytes Absolute Auto 1.3 10^3/uL (1.2-3.8); Lymphocytes Percent Auto 16.6 % (20.5-60.0); Mean Corpuscular HGB Conc 32.8 g/dL (29.9-35.2); Mean Corpuscular Hemoglobin 29.7 pg (25.9-34.0); Mean Corpuscular Volume 90.7 fL (80.0-94.0); Mean Platelet Volume 10.9 fL (9.5-13.5); Monocytes Absolute Auto 0.5 10^3/uL (0.3-0.8); Monocytes Percent Auto 6.7 % (1.7-12.0); Neutrophils Absolute Auto 5.4 10^3/uL (1.4-6.5); Neutrophils Percent Auto 70.5 % (43.0-75.0); Platelet Count 266 10^3/uL (150-450); Red Blood Count 4.41 10^6/uL (4.70-6.10); Red Cell Distribution Width 14.5 % (11.0-15.0); White Blood Count 7.7 10^3/uL (4.0-11.0)
[2023-05-19 17:20] LABS: Anion Gap 12.1; BUN Creatinine Ratio 20.8; Calcium 8.8 mg/dL (8.5-10.1); Carbon Dioxide 26.1 mmol/L (21.0-32.0); Chloride 104 mmol/L (98-107); Estimated GFR (African America >60 (>=60); Estimated GFR (Non-African Ame >60 (>=60); Glucose 165 mg/dL (74-106); Potassium 4.2 mmol/L (3.5-5.1); Sodium 138 mmol/L (136-145); Troponin I High Sensitivity 7.3 pg/mL (4.0-76.1)
== END 2023-05-19 17:52 | disposition home or self-care (01) ==
PROVIDERS: Emergency Provider Emergency Medicine
DX: R07.89 Other chest pain (principal); I10 Essential (primary) hypertension; J44.9 Chronic obstructive pulmonary disease, unspecified; F17.210 Nicotine dependence, cigarettes, uncomplicated; F31.9 Bipolar disorder, unspecified; F25.9 Schizoaffective disorder, unspecified; Q25.40 Congenital malformation of aorta unspecified; Z98.890 Other specified postprocedural states; Z86.14 Personal history of Methicillin resistant Staphylococcus aureus infection; Z79.899 Other long term (current) drug therapy
CPT/HCPCS: 36415; 71045; 80048; 84484; 85025; 93005; 99285